=== PATIENT | female | born 1945 | race Caucasian/White ===

== ENCOUNTER 2018-01-18 15:23 | Emergency (ER) | payer BC, MEDICARE, OTHER ==
[~2018-01-18] VITALS: Ht 165.1 cm; Wt 92.0 kg
[2018-01-18] MEDS ORDERED: SODIUM CHLORIDE FLUSH 10ML SYR IVF ONE (16:00)
[2018-01-18] MEDS ORDERED: ATORVASTATIN (16:00)
[2018-01-18] MEDS ORDERED: SYNTHROID (16:00)
[2018-01-18 16:06] LABS: BASOPHILS # (AUTO) 0.13 x10^3/uL (0-0.1); BASOPHILS % (AUTO) 1 % (0-1); EOSINOPHILS # (AUTO) 0.64 x10^3/uL (0-0.4); EOSINOPHILS % (AUTO) 6 % (1-7); LYMPHOCYTES # (AUTO) 4.86 x10^3/uL (1-3.4); LYMPHOCYTES % (AUTO) 45 % (22-44); MD NO; MEAN CORPUSCULAR HEMOGLOBIN 30.6 pg (27.0-34.8); MEAN CORPUSCULAR HGB CONC 32.7 g/dL (32.4-35.8); MEAN CORPUSCULAR VOLUME 93.5 fL (80-100); MEAN PLATELET VOLUME 7.9 fL (7.4-10.4); MONOCYTES # (AUTO) 0.79 x10^3/uL (0.2-0.8); MONOCYTES % (AUTO) 7 % (2-9); NEUTROPHILS # (AUTO) 4.31 x10^3/uL (1.8-6.8); NEUTROPHILS % (AUTO) 40 % (42-75); PLATELET COUNT 474 x10^3/uL (130-400); RED BLOOD COUNT 4.74 x10^6/uL (3.82-5.3); RED CELL DISTRIBUTION WIDTH 13.5 % (9.6-15.2)
[2018-01-18 16:16] LABS: ALANINE AMINOTRANSFERASE 24 U/L (12-78); ALBUMIN 3.3 g/dL (3.4-5.0); ANION GAP 8 mmol/L (5-15); CALCIUM 9.6 mg/dL (8.5-10.1); CHLORIDE 105 mmol/L (98-107); CREATININE 0.56 mg/dL (0.55-1.02)
[2018-01-18 16:18] LABS: ALKALINE PHOSPHATASE 109 U/L (45-117); BILIRUBIN,TOTAL 0.5 mg/dL (0.2-1.0); TOTAL PROTEIN 7.5 g/dL (6.4-8.2)
[2018-01-18 16:19] LABS: MICROSCOPIC NOT IND
[2018-01-18 16:38] LABS: CULTURE INDICATED? NO
[2018-01-18 18:12] VITALS: BP 139/83
== END 2018-01-18 19:09 | disposition home or self-care (01) ==
LOC: ED 18:45
DX: R10.84 Generalized abdominal pain (principal); R11.2 Nausea with vomiting, unspecified; R63.0 Anorexia; E03.9 Hypothyroidism, unspecified; Z90.49 Acquired absence of other specified parts of digestive tract
CPT/HCPCS: 36415; 74021; 74177; 80053; 81003; 83690; 85025; 99285

== ENCOUNTER → 2018-02-03 | Outpatient (CLI) | payer MEDICARE ==
[~2018-02-03] MED LIST: ATORVASTATIN; OMNIPAQUE 350 MG/ML, 100ML BOTTLE ONE; SYNTHROID
== END | disposition home or self-care (01) ==
LOC: RAD 15:40
PROVIDERS: ATTEND Family Medicine
DX: K43.9 Ventral hernia without obstruction or gangrene (principal)
CPT/HCPCS: 74174; Q9967

== ENCOUNTER → 2018-08-11 | Outpatient (CLI) | payer MEDICARE ==
[~2018-08-11] MED LIST changes: -OMNIPAQUE 350 MG/ML, 100ML BOTTLE ONE; +REGADENOSON 0.4 MG/5 ML SYRINGE ONE
== END | disposition home or self-care (01) ==
LOC: CFH 12:38
PROVIDERS: ATTEND Internal Medicine Cardiovascular Disease
DX: R06.02 Shortness of breath (principal); R07.9 Chest pain, unspecified; I10 Essential (primary) hypertension; E78.5 Hyperlipidemia, unspecified
CPT/HCPCS: 78452; 93017; 93306; A9502; J2785

== ENCOUNTER 2018-10-31 13:29 | Emergency (ER) | payer MEDICARE ==
[~2018-10-31] VITALS: Ht 162.6 cm; Wt 95.0 kg
[~2018-10-31 13:29] MED LIST changes: -REGADENOSON 0.4 MG/5 ML SYRINGE ONE
--- NOTE | 2018-10-31 13:50 | NUR ---
THIS IS A 73 YO FEMALE WHO PRESENTS TO THE ER BIB [facility] C/O RODRIGUEZ, DIZZINESS, AND CHEST TIGHTNESS SINCE THURSDAY, WORSE OVER THE LAST 40 MINUTES AND INCLUDING NAUSEA. PT STARTING TAKING VALCYCLOVIR SINCE THURSDAY FOR SHINGLES. PT DENIES ANY RASH, JUST STATES "I'VE HAD TINGLES OVER MY WHOLE BODY, IT FELT LIKE SHINGLES". PT DESCRIBES PAIN "DULL AND PRESSURE, LIKE SOMEONE IS SITTING ON ME". PT REPORTS PAIN IS WORSE WITH PALPATION AND WEARING BRA. RELIEVED BY REST AND TAKING BRA OFF. SKIN PWD. RESP EVEN AND EQAUL. NSR ON THE PRESCHOOL ASSOCIATE TEACHER. PT ON CONT BP, CARDIAC AND 2O MONITORS. CALL LIGHT WITHIN REACH. WILL CONT TO MONITOR PT.
[2018-10-31 14:00] LABS: BASOPHILS # (AUTO) 0.17 x10^3/uL (0-0.1); BASOPHILS % (AUTO) 1 % (0-1); EOSINOPHILS # (AUTO) 0.57 x10^3/uL (0-0.4); EOSINOPHILS % (AUTO) 5 % (1-7); LYMPHOCYTES # (AUTO) 4.93 x10^3/uL (1-3.4); LYMPHOCYTES % (AUTO) 41 % (22-44); MD NO; MEAN CORPUSCULAR HEMOGLOBIN 30.8 pg (27.0-34.8); MEAN CORPUSCULAR HGB CONC 33.3 g/dL (32.4-35.8); MEAN CORPUSCULAR VOLUME 92.5 fL (80-100); MEAN PLATELET VOLUME 8.4 fL (7.4-10.4); MONOCYTES # (AUTO) 0.65 x10^3/uL (0.2-0.8); MONOCYTES % (AUTO) 5 % (2-9); NEUTROPHILS # (AUTO) 5.67 x10^3/uL (1.8-6.8); NEUTROPHILS % (AUTO) 47 % (42-75); PLATELET COUNT 450 x10^3/uL (130-400); RED CELL DISTRIBUTION WIDTH 13.6 % (9.6-15.2)
[2018-10-31 14:10] LABS: ANION GAP 7 mmol/L (5-15); CALCIUM 9.4 mg/dL (8.5-10.1); CHLORIDE 104 mmol/L (98-107); CREATININE 0.51 mg/dL (0.55-1.02)
[2018-10-31 14:14] LABS: TROPONIN I < 0.015 ng/mL (0.000-0.045)
--- NOTE | 2018-10-31 14:16 | NUR ---
PT STEADY UPON AMBULATION TO RESTROOM. URINE SAMPLE OBTAINED. PT ASSISTED BACK TO [facility]. PT ON CONT BP, CARDIAC AND O2 MONITORS. FRIENDS AT BEDSIDE. CALL LIGHT WITHIN REACH. WILL CONT TO MONITOR PT.
[2018-10-31 14:25] LABS: MICROSCOPIC AUTO
[2018-10-31 14:30] LABS: CULTURE INDICATED? YES
[2018-10-31 14:54] VITALS: BP 156/93
== END 2018-10-31 15:05 | disposition home or self-care (01) ==
LOC: ED 14:28
DX: R55 Syncope and collapse (principal); E78.5 Hyperlipidemia, unspecified; E03.9 Hypothyroidism, unspecified; Z87.891 Personal history of nicotine dependence; Z88.0 Allergy status to penicillin; Z90.49 Acquired absence of other specified parts of digestive tract
CPT/HCPCS: 36415; 71045; 80048; 81001; 84484; 85025; 87086; 93005; 99284

== ENCOUNTER → 2020-01-12 | Outpatient (CLI) | payer MEDICARE | END | disposition home or self-care (01) | LOC: CFH 12:13 | PROVIDERS: ATTEND Family Medicine | DX: K76.0 Fatty (change of) liver, not elsewhere classified (principal); K57.30 Diverticulosis of large intestine without perforation or abscess without bleeding; K42.9 Umbilical hernia without obstruction or gangrene; K43.9 Ventral hernia without obstruction or gangrene; M85.88 Other specified disorders of bone density and structure, other site; I51.7 Cardiomegaly; Z90.49 Acquired absence of other specified parts of digestive tract | CPT/HCPCS: 74176 ==

== ENCOUNTER 2020-02-20 12:43 | Emergency (ER) | payer MEDICARE ==
[~2020-02-20] VITALS: Ht 165.1 cm; Wt 94.4 kg
[2020-02-20] MEDS ORDERED: MORPHINE SULFATE 4 MG/ML, 1ML ONE (13:38)
[2020-02-20] MEDS ORDERED: ONDANSETRON 2MG/ML, 2ML ONE (13:59)
[2020-02-20 14:04] LABS: BASOPHILS # (AUTO) 0.05 x10^3/uL (0-0.1); BASOPHILS % (AUTO) 1 % (0-1); EOSINOPHILS # (AUTO) 0.52 x10^3/uL (0-0.4); EOSINOPHILS % (AUTO) 5 % (1-7); LYMPHOCYTES # (AUTO) 4.39 x10^3/uL (1-3.4); LYMPHOCYTES % (AUTO) 39 % (22-44); MD NO; MEAN CORPUSCULAR HEMOGLOBIN 30.5 pg (27.0-34.8); MEAN CORPUSCULAR HGB CONC 32.8 g/dL (32.4-35.8); MONOCYTES # (AUTO) 0.58 x10^3/uL (0.2-0.8); MONOCYTES % (AUTO) 5 % (2-9); NEUTROPHILS # (AUTO) 5.63 x10^3/uL (1.8-6.8); NEUTROPHILS % (AUTO) 50 % (42-75); PLATELET COUNT 452 x10^3/uL (130-400)
--- NOTE | 2020-02-20 14:13 | NUR ---
PT PRESENTS TO ED WITH C/O PERIUMBILICAL PAIN SECONDARY TO HERNIA WHICH HAS BEEN PREVIOUSLY DIAGNOSED. PT NOTES PAIN HAS BEEN PRESENT FOR MONTHS BUT WORSE IN LAST TWO DAYS, +NAUSEA. PT REQUESTS LOW DOSE PAIN MED AND NAUSEA MED, ERNA DE LA ROSA NOTIFIED, VERBAL ORDER RECEIVED FOR 1MG MORPHINE AND 4 MG IV ZOFRAN. BP AND SPO2 MONITORS IN PLACE. CALL LIGHT IN REACH. US AT BEDSIDE.
[2020-02-20 14:17] LABS: ALANINE AMINOTRANSFERASE 30 U/L (12-78); ALBUMIN 3.2 g/dL (3.4-5.0); ANION GAP 9 mmol/L (5-15); CALCIUM 9.3 mg/dL (8.5-10.1); CHLORIDE 107 mmol/L (98-107); CREATININE 0.54 mg/dL (0.55-1.02)
[2020-02-20 14:20] LABS: ALKALINE PHOSPHATASE 102 U/L (45-117); BILIRUBIN,TOTAL 0.7 mg/dL (0.2-1.0); TOTAL PROTEIN 7.5 g/dL (6.4-8.2)
[2020-02-20] MEDS ORDERED: morphine SULFATE 10 MG/ML, 1ML IVPush ONE (14:30)
[2020-02-20] MEDS ORDERED: ONDANSETRON 2MG/ML, 2ML IVPush ONE (14:30)
--- NOTE | 2020-02-20 15:02 | NUR ---
PT REPORTS MORPHINE DID NOT RELIEVE PAIN, DECLINES ANY ADDITIONAL MEDS. PT A&O, RESPS EVEN AND UNLABORED. ALL RESULTS BACK, CHART UP FOR RECHECK, AWAITING MD AND DISPO. REPORT GIVEN TO KARTHIK REYES AT BEDSIDE.
--- NOTE | 2020-02-20 15:09 | NUR ---
REPORT RC'VD FROM BRITTANY ANGELES AND CARE OF PT ASSUMED. PT AMBULATING AROUND ROOM, STATES IT FEELS BETTER THAN SITTING. ERP TO SEE.
--- NOTE | 2020-02-20 15:10 | NUR ---
ERP AT NOW.
--- NOTE | 2020-02-20 15:27 | NUR ---
PT REFUSING CT SCAN, STATES, "I HAD ONE A MONTH AGO, NOTHING HAS CHANGED." PT ALSO STATES SHE IS ALLERGIC TO CONTRAST. PT RELUCTANT TO TAKE NARCOTICS; ERP NOTIFIED. INFORMED PT NO OTHER MEDS WOULD BE EFFECTIVE FOR THE ABD PAIN. PT AGREEABLE TO RECEIVE IV DILAUDID. ERP CONSULTING SURGERY.
[2020-02-20] MEDS ORDERED: HYDROmorphone 2 MG/ML, 1ML ONE (15:29)
[2020-02-20] MEDS ORDERED: HYDROmorphone 1 MG/ML, 1ML INJ IV ONE (15:30)
[2020-02-20 15:45] VITALS: BP 153/80
--- NOTE | 2020-02-20 15:51 | NUR ---
PT STATES HER PAIN WAS RELIEVED AFTER 1MG DILAUDID. FRIEND AT BS, WILL TRACER BULLET CHARGING MACHINE OPERATOR HER HOME.
--- NOTE | 2020-02-20 16:12 | NUR ---
D/C INSTRUCTIONS, MEDS & F/U APPT RV'WD WITH PT, SHE VERBALIZES UNDERSTANDING. PT KNOWS TO CALL DR. HAWKINS TOMORROW. RX GIVEN X1. ASSISTED PT OUT OF ED VIA WC WITH FRIEND, WHO WILL TAKE HER HOME.
== END 2020-02-20 16:12 | disposition home or self-care (01) ==
LOC: ED 15:09
DX: K42.9 Umbilical hernia without obstruction or gangrene (principal); E03.9 Hypothyroidism, unspecified; E78.5 Hyperlipidemia, unspecified; J44.9 Chronic obstructive pulmonary disease, unspecified; Z87.891 Personal history of nicotine dependence
CPT/HCPCS: 36415; 76705; 80053; 85025; 96374; 96375; 99284; J1170; J2270; J2405

== ENCOUNTER 2020-03-03 08:40 | Emergency (ER) | payer MEDICARE ==
[~2020-03-03] VITALS: Ht 165.1 cm; Wt 93.0 kg
--- NOTE | 2020-03-03 09:20 | NUR ---
ASSUMED CARE OF PT AT THIS TIME FROM LOBBY. AMBULATORY TO ROOM WITH STEADY GAIT. TIESHA VASQUEZ AT BEDSIDE FOR EVALUATION. 75 Y/O F PRESENT STATING "GUM INFECTION FOR ABOUT A MONTH, THE TOP FRONT TEETH AREA AND NOT SURE IF THAT IS CAUSING SOME PART OF THE STOMACH PAIN. I HAVE BEEN NAUSEATED AND SEVERE PAIN AT MY HERNIA IN MY STOMACH FOR SOME TIME NOW, I'M SCHEDULED FOR SURGERY February." DENIES DIARRHEA, FEVER, CHILLS, COUGH, SOB, CP, RODRIGUEZ, RECENT TRAVEL OR CONTACT WITH COVID + PERSONS. CONT PULSE OX, BP MONITORS APPLIED. VSS. RATES ABD PAIN 03/09, REFUSES NEED FOR PAIN MEDICATION. A&OX4. CALL LIGHT IN REACH. FALL PRECAUTIONS IN PLACE.
[2020-03-03] MEDS ORDERED: ONDANSETRON 2MG/ML, 2ML IVPush ONE (09:30)
[2020-03-03] MEDS ORDERED: CIPROFLOXACIN/PMX 400MG/200ML 200 ML IV ONE (09:30)
[2020-03-03] MEDS ORDERED: SODIUM CHLORIDE FLUSH 10ML SYR IVF ONE (09:30)
[2020-03-03] MEDS ORDERED: ONDANSETRON 2MG/ML, 2ML ONE (09:34)
--- NOTE | 2020-03-03 09:40 | NUR ---
LAB AT BEDSIDE, BLOOD CULTURES TO BE [id number] PRIOR TO ANTIBIOTIC ADMIN PER ERP
--- NOTE | 2020-03-03 09:45 | NUR ---
IV PLACED, PT MEDICATED NOTED PER ORDER IN EMAR FOR NAUSEA. THERMOSTAT MACHINE TENDER AT BEDSIDE FOR EKG. VSS. CALL LIGHT IN REACH
--- NOTE | 2020-03-03 09:51 | NUR ---
PT AWARE UA SAMPLE NEEDED, DENIES URGE AT THIS TIME. UPDATED ON NPO ORDER, VERBALIZED UNDERSTANDING
--- NOTE | 2020-03-03 09:59 | NUR ---
PT REPORT FROM KARTHIK CARLTON. PT CARE TO BE ASSUMED.
--- NOTE | 2020-03-03 10:00 | NUR ---
VO FROM DR SENA: HOLD ANTIBIOTIC
[2020-03-03 10:02] LABS: BASOPHILS # (AUTO) 0.05 x10^3/uL (0-0.1); BASOPHILS % (AUTO) 1 % (0-1); EOSINOPHILS # (AUTO) 0.57 x10^3/uL (0-0.4); EOSINOPHILS % (AUTO) 6 % (1-7); LYMPHOCYTES # (AUTO) 2.62 x10^3/uL (1-3.4); LYMPHOCYTES % (AUTO) 28 % (22-44); MD NO; MEAN CORPUSCULAR HEMOGLOBIN 30.5 pg (27.0-34.8); MEAN CORPUSCULAR HGB CONC 32.1 g/dL (32.4-35.8); MONOCYTES % (AUTO) 3 % (2-9); NEUTROPHILS % (AUTO) 63 % (42-75); PLATELET COUNT 496 x10^3/uL (130-400); RED CELL DISTRIBUTION WIDTH 14.4 % (9.6-15.2)
--- NOTE | 2020-03-03 10:03 | NUR ---
BEDSIDE REPORT AND TRANSFER OF CARE TO ALANNA ANGELES AT THIS TIME.
[2020-03-03 10:10] LABS: INTERNATIONAL NORMALIZED RATIO 0.98 (0.93-1.1); PROTHROMBIN TIME 10.4 Seconds (9.6-11.5)
[2020-03-03 10:16] LABS: ALANINE AMINOTRANSFERASE 28 U/L (12-78); ALBUMIN 3.4 g/dL (3.4-5.0); ANION GAP 5 mmol/L (5-15); CALCIUM 9.8 mg/dL (8.5-10.1); CHLORIDE 108 mmol/L (98-107); CREATININE 0.62 mg/dL (0.55-1.02)
[2020-03-03 10:18] LABS: ALKALINE PHOSPHATASE 96 U/L (45-117); BILIRUBIN,TOTAL 0.6 mg/dL (0.2-1.0); TOTAL PROTEIN 7.6 g/dL (6.4-8.2)
--- NOTE | 2020-03-03 10:50 | NUR ---
PT IN BR. HUMAN SERVICES PROFESSIONAL IN ROOM AWAITING PT
--- NOTE | 2020-03-03 10:58 | NUR ---
VOIDED SPECIMEN PROVIDED. PT TO CT PER MEGAN. FRIEND IN ED ROOM STATES PT'S FAMILY LIVES IN [place]; PT FREQUENTLY FORGETTING THINGS; MULTIPLE TRIPS TO ED FOR PAIN THAT USUALLY GOES AWAY IN THE AFTERNOON; PT HAS NOT STARTED ANTIBIOTIC FOR GUM INFECTION.
[2020-03-03 11:21] VITALS: BP 146/80
[2020-03-03 11:22] LABS: MICROSCOPIC NOT IND
--- NOTE | 2020-03-03 11:22 | NUR ---
PT REPORTS DECREASE IN ABD PAIN.
[2020-03-03] MEDS ORDERED: LIPITOR (11:23)
== END 2020-03-03 11:43 | disposition home or self-care (01) ==
LOC: ED 11:30
DX: K42.9 Umbilical hernia without obstruction or gangrene (principal); R94.31 Abnormal electrocardiogram [ECG] [EKG]; E78.5 Hyperlipidemia, unspecified; J44.9 Chronic obstructive pulmonary disease, unspecified; E03.9 Hypothyroidism, unspecified; Z87.891 Personal history of nicotine dependence; Z90.49 Acquired absence of other specified parts of digestive tract; Z90.81 Acquired absence of spleen
CPT/HCPCS: 36415; 74176; 80053; 81003; 83605; 83690; 85025; 85610; 87040; 93005; 96374; 99285; J2405

== ENCOUNTER → 2020-03-06 | Outpatient (CLI) | payer MEDICARE ==
[~2020-03-06] MED LIST changes: +ATOR20TA37 PO; +FLUT1BLS INH; +LEVO88TA2 PO; +LIPITOR
== END | disposition home or self-care (01) ==
LOC: STAR 13:02
PROVIDERS: ATTEND Surgery
DX: Z01.818 Encounter for other preprocedural examination (principal); K43.9 Ventral hernia without obstruction or gangrene; I25.2 Old myocardial infarction
CPT/HCPCS: 93005

== ENCOUNTER 2020-03-09 08:00 | Outpatient (CLI) | payer MEDICARE ==
[~2020-03-09] VITALS: Ht 165.1 cm; Wt 93.2 kg
== END 2020-03-09 23:59 | disposition home or self-care (01) ==
LOC: STAR 08:00 → EDSTATUS 03-14 12:15
PROVIDERS: ATTEND Surgery
DX: Z01.818 Encounter for other preprocedural examination (principal); Z11.59 Encounter for screening for other viral diseases; K43.9 Ventral hernia without obstruction or gangrene; Z88.0 Allergy status to penicillin; Z88.2 Allergy status to sulfonamides; Z88.1 Allergy status to other antibiotic agents; Z91.041 Radiographic dye allergy status; Z87.891 Personal history of nicotine dependence; Z82.49 Family history of ischemic heart disease and other diseases of the circulatory system
CPT/HCPCS: 36415; 87635

== ENCOUNTER → 2020-04-10 | Outpatient (CLI) | payer MEDICARE | END | disposition home or self-care (01) | LOC: STAR 14:21 | PROVIDERS: ATTEND Surgery | DX: Z01.818 Encounter for other preprocedural examination (principal); K43.9 Ventral hernia without obstruction or gangrene | CPT/HCPCS: 93005 ==

== ENCOUNTER → 2020-04-13 | Outpatient (CLI) | payer MEDICARE | END | disposition home or self-care (01) | LOC: STAR 10:34 | PROVIDERS: ATTEND Anesthesiology | DX: Z01.818 Encounter for other preprocedural examination (principal); Z11.59 Encounter for screening for other viral diseases | CPT/HCPCS: 36415; 87635 ==

== ENCOUNTER 2020-04-18 08:20 | Observation (INO) | payer MEDICARE ==
[~2020-04-18] VITALS: Ht 165.1 cm; Wt 95.9 kg
[~2020-04-18 08:20] MED LIST changes: +BUPIVACAINE/EPI 0.5% 1:200K ONE
[2020-04-18] MEDS ORDERED: LACTATED RINGERS 1,000 ML IV SCH ×2 (09:12→19:00)
[2020-04-18] MEDS ORDERED: LIDOCAINE-MPF 1%, 2ML INFIL ONE (09:30)
[2020-04-18] MEDS ORDERED: CHLORHEXIDINE 15 ML UDC MM ONE (09:30)
[2020-04-18] MEDS ORDERED: FENTANYL PF 250 MCG/5ML ONE (10:33)
[2020-04-18] MEDS ORDERED: PROMETHAZINE 25 MG SUPP PR PRN (11:00)
[2020-04-18] MEDS ORDERED: PROMETHAZINE 25 MG/ML, 1ML IVPush PRN (11:00)
[2020-04-18] MEDS ORDERED: ACETAMINOPHEN 325 MG TABLET PO PRN (11:00)
[2020-04-18] MEDS ORDERED: hydrALAzine 20 MG/ML, 1ML IV PRN (11:00)
[2020-04-18] MEDS ORDERED: ONDANSETRON 2MG/ML, 2ML IVPush PRN ×3 (11:00→19:00)
[2020-04-18] MEDS ORDERED: HYDROmorphone 1 MG/ML, 1ML INJ IVPush PRN (11:00)
[2020-04-18] MEDS ORDERED: SUGAMMADEX 200 MG/2 ML IVPush ONE (12:10)
[2020-04-18] MEDS ORDERED: ROCURONIUM 10MG/ML,5ML ONE (12:10)
[2020-04-18] MEDS ORDERED: ONDANSETRON 2MG/ML, 2ML ONE (12:10)
[2020-04-18] MEDS ORDERED: SUCCINYLCHOLINE 20 MG/ML, 10ML ONE (12:10)
[2020-04-18] MEDS ORDERED: DEXAMETHASONE 4 MG/ML, 1ML ONE (12:10)
[2020-04-18] MEDS ORDERED: NEOSTIGMINE 1 MG/ML, 10ML ONE (12:10)
[2020-04-18] MEDS ORDERED: PROPOFOL 10 MG/ML, 20ML ONE (12:10)
[2020-04-18] MEDS ORDERED: CEFAZOLIN 1,000 MG ONE (12:10)
[2020-04-18] MEDS ORDERED: GLYCOPYRROLATE 0.2MG/1ML, 5ML ONE (12:10)
[2020-04-18] MEDS ORDERED: hydrALAzine 20 MG/ML, 1ML ONE (12:29)
[2020-04-18] MEDS ORDERED: LABETALOL 5MG/ML, 20ML ONE (12:29)
[2020-04-18] MEDS ORDERED: FENTANYL PF 100 MCG/2ML ONE (12:30)
[2020-04-18] MEDS: LABETALOL 5MG/ML, 20ML IV PRN ×2 (12:35→12:41)
[2020-04-18] MEDS ORDERED: OXYcodone 5 MG/5 ML ORAL.SOL UDC ONE (12:50)
[2020-04-18] MEDS ORDERED: ACETAMINOPHEN 650 MG/20.3 ML UDC ONE ×2 (12:50→12:54)
[2020-04-18] MEDS: FENTANYL PF 100 MCG/2ML IV PRN ×4 (12:53→13:31)
[2020-04-18] MEDS: OXYcodone 5 MG/5 ML ORAL.SOL UDC PO PRN ×2 (12:57→14:06)
[2020-04-18] MEDS ORDERED: KETOROLAC 30 MG/1 ML IVPush ONE (14:00)
[2020-04-18] MEDS ORDERED: morphine SULFATE 10 MG/ML, 1ML IVPush PRN (16:30)
[2020-04-18] MEDS ORDERED: OXYcodone IR 5MG TABLET PO PRN (17:00)
[2020-04-18] MEDS ORDERED: MORPHINE SULFATE 4 MG/ML, 1ML IVPush PRN (19:00)
[2020-04-18 19:48] VITALS: BP 156/92
[2020-04-18] MEDS ORDERED: PROMETHAZINE 25 MG SUPP PR ONE (20:10)
[2020-04-18] MEDS: OXYcodone/APAP 5/325MG TABLET PO PRN (22:01)
[2020-04-19 00:10] VITALS: BP 120/73
[2020-04-19 03:19] VITALS: BP 133/90
[2020-04-19] MEDS: OXYcodone/APAP 5/325MG TABLET PO PRN (05:24)
[2020-04-19 07:37] VITALS: BP 94/55
[2020-04-19] MEDS ORDERED: OXYC-302 PO (11:30)
== END 2020-04-19 12:00 | disposition home or self-care (01) ==
LOC: OUT 08:20 → 4NE 18:31 → OUT 18:39 → DCLOUNGE 04-19 11:57
PROVIDERS: ADMIT Surgery; ATTEND Surgery
DX: K43.2 Incisional hernia without obstruction or gangrene (principal); E03.9 Hypothyroidism, unspecified; Z87.891 Personal history of nicotine dependence; Z79.899 Other long term (current) drug therapy; Z90.81 Acquired absence of spleen
CPT/HCPCS: 49655; 96361; 96374; C1781; G0378; J0330; J0360; J0690; J1100; J1885; J2405; J2704; J2710; J3010; J7120

== ENCOUNTER 2020-04-19 16:11 | Emergency (ER) | payer MEDICARE ==
[~2020-04-19] VITALS: Ht 165.1 cm; Wt 92.0 kg
[~2020-04-19 16:11] MED LIST changes: -BUPIVACAINE/EPI 0.5% 1:200K ONE; +OXYC-302 PO
[2020-04-19 16:18] VITALS: BP 141/100
--- NOTE | 2020-04-19 16:51 | NUR ---
PT WAITING IN LOBBY WHEN SHE BEGAN C/O "NEEDING OXYGEN, I'M HAVING TROUBLE BREATHING, MY CHEST HURTS AND I'M HAVING PAIN IN MY JAW", PT TAKEN TO ROOM VIA WC FOR EKG.
[2020-04-19] MEDS ORDERED: MORPHINE SULFATE 4 MG/ML, 1ML IVPush PRN (18:00)
[2020-04-19] MEDS ORDERED: ONDANSETRON 2MG/ML, 2ML IVPush ONE (18:00)
[2020-04-19 18:15] LABS: BASOPHILS # (AUTO) 0.24 x10^3/uL (0-0.1); BASOPHILS % (AUTO) 2 % (0-1); EOSINOPHILS # (AUTO) 0.16 x10^3/uL (0-0.4); EOSINOPHILS % (AUTO) 1 % (1-7); LYMPHOCYTES # (AUTO) 4.59 x10^3/uL (1-3.4); LYMPHOCYTES % (AUTO) 30 % (22-44); MD NO; MEAN CORPUSCULAR HEMOGLOBIN 30.7 pg (27.0-34.8); MEAN CORPUSCULAR HGB CONC 32.6 g/dL (32.4-35.8); MEAN PLATELET VOLUME 8.2 fL (7.4-10.4); MONOCYTES # (AUTO) 0.73 x10^3/uL (0.2-0.8); MONOCYTES % (AUTO) 5 % (2-9); NEUTROPHILS # (AUTO) 9.49 x10^3/uL (1.8-6.8); NEUTROPHILS % (AUTO) 62 % (42-75); PLATELET COUNT 454 x10^3/uL (130-400); RED BLOOD COUNT 4.36 x10^6/uL (3.82-5.3)
[2020-04-19] MEDS ORDERED: ONDANSETRON ODT 4 MG ONE (18:16)
[2020-04-19] MEDS ORDERED: OXYcodone/APAP 5/325MG TABLET ONE (18:16)
[2020-04-19 18:29] LABS: ALANINE AMINOTRANSFERASE 31 U/L (12-78); ALBUMIN 3.3 g/dL (3.4-5.0); ANION GAP 8 mmol/L (5-15); CALCIUM 8.7 mg/dL (8.5-10.1); CHLORIDE 102 mmol/L (98-107); CREATININE 0.72 mg/dL (0.55-1.02)
[2020-04-19 18:32] LABS: ALKALINE PHOSPHATASE 95 U/L (45-117); BILIRUBIN,TOTAL 0.8 mg/dL (0.2-1.0); TOTAL PROTEIN 7.4 g/dL (6.4-8.2)
--- NOTE | 2020-04-19 18:39 | NUR ---
IN TO START IV, PT REFUSING ASKING FOR PERCOCET INSTEAD OF MORPHINE ORDERED. ERP NOTIFIED, AND PT IN CT ON RETURN WITH MEDS. SPOKE WITH PT'S FRIEND, WHO STATES PT CAN'T REMEMBER MOST THINGS, EXPERIENCING DIFFICULTY TAKING CARE OF SELF, AND CANCELS A LOT OF MEDICAL APPOINTMENTS INCLUDING "BRAIN SCANS" ORDERED BY ESTEFANIA. PT RETURN FROM CT, PER TECH PT STATES SHE CAN'T DO CT SCAN. PT IN TEARS, ANXIOUS, AND ASKS "WHY DO I HAVE TO DO IT?". PERCOCET AND ZOFRAN OFFERED TO PT AND PT ASKS "WHY DO I NEED TO TAKE IT", "I JUST CAN'T DO ANYTHING WHEN I'M IN THIS PAIN". THIS RN OFFERED CONTINUED REINFORCEMENT OF POC AND EMPHASIS ON PT'S REASON FOR COMING TO ED. PT FINALLY DOES TAKE MEDICATION AFTER ENCOURAGEMENT TO HELP HER PAIN. ERP NOTIFIED OF THIS AND REFUSAL TO DO CT. FRIEND AT , CALL LIGHT WITHIN REACH.
--- NOTE | 2020-04-19 18:49 | NUR ---
PT AMBULATED TO BR WITH STEADY GAIT.
--- NOTE | 2020-04-19 18:53 | NUR ---
PT NOW ASKING TO LEAVE. STATES PAIN LEVEL TOLERABLE TO GO HOME. PT PLACED UP FOR RECHECK.
== END 2020-04-19 19:55 | disposition home or self-care (01) ==
LOC: ED 19:13
DX: G89.18 Other acute postprocedural pain (principal); R10.9 Unspecified abdominal pain; R10.32 Left lower quadrant pain; J44.9 Chronic obstructive pulmonary disease, unspecified; E03.9 Hypothyroidism, unspecified; E78.5 Hyperlipidemia, unspecified; I21.9 Acute myocardial infarction, unspecified; Z90.49 Acquired absence of other specified parts of digestive tract
CPT/HCPCS: 36415; 80053; 83690; 85025; 93005; 99284

== ENCOUNTER 2020-04-20 01:13 | Emergency (ER) | payer MEDICARE ==
[~2020-04-20] VITALS: Ht 165.1 cm; Wt 94.4 kg
--- NOTE | 2020-04-20 01:29 | NUR ---
EARLIER VISIT REVEALS THAT PT WAS UNABLE/REFUSED TO DO CT, AWARE THAT SHE NEEDS TO HAVE THIS DONE NOW IF ORDERED AND PT IS AGREEABLE. PREVIOUS VISIT NURSES NOTE REVEAL NEIGHBOR EXPRESSED SOME CONCERN PT IS CANCELLING APPOINTMENTS AND BECOMING FORGETFUL.
--- NOTE | 2020-04-20 01:48 | NUR ---
PT REPORTS CONTINUED ABDOMINAL PAIN. WAS SEEN IN ED EARLIER TODAY FOR SAME. REPORTS SHE DID NOT RECEIVED PAIN MEDICATIONS, THEN RECALLED SHE HAD A PRESCRIPTION, BUT IS UNSURE OF WHAT HAPPENED TO IT. PT REQUESTING PERCOCET, REFUSING MORPHINE. PT REPORTS FRIEND BROUGHT PT TO ED. ERP IN ROOM TO EVAL PT. MONITORING APPLIED, CALL LIGHT WITHIN REACH, ALL MONITORING IN PLACE.
[2020-04-20] MEDS ORDERED: OXYcodone/APAP 5/325MG TABLET ONE (01:54)
[2020-04-20] MEDS ORDERED: OXYcodone/APAP 5/325MG TABLET PO ONE (02:00)
--- NOTE | 2020-04-20 02:00 | NUR ---
ATTEMPTED TO MEDICATE PT. PT TRIED TO SWALLOW PILL WITH WATER, SPIT PILL OUT AND STATES "MY MOUTH IS TOO DRY I DON'T WANT IT".
--- NOTE | 2020-04-20 03:24 | NUR ---
PT PLACED ON 3.5L NC WHILE SLEEPING, PT REPORTS 3L NC HOME USE AT NIGHT. MONITORING IN PLACE.
[2020-04-20 04:21] VITALS: BP 158/90
--- NOTE | 2020-04-20 04:21 | NUR ---
PT AWAKE AND REQUESTING TO LEAVE. PT UNABLE TO HAVE FRIEND COME PICK HER UP. STATES "ILL GET A TAXI CAB". ERP NOTIFIED.
== END 2020-04-20 04:42 | disposition home or self-care (01) ==
LOC: ED 02:06
DX: K91.89 Other postprocedural complications and disorders of digestive system (principal); R10.84 Generalized abdominal pain; J44.9 Chronic obstructive pulmonary disease, unspecified; E78.5 Hyperlipidemia, unspecified; E03.9 Hypothyroidism, unspecified
CPT/HCPCS: 74176; 99284

== ENCOUNTER 2020-10-03 12:38 | Emergency (ER) | payer MEDICARE ==
[~2020-10-03] VITALS: Ht 167.6 cm; Wt 89.3 kg
[~2020-10-03 12:38] MED LIST changes: -OXYC-302 PO; +OXYC1TAB14 PO
--- NOTE | 2020-10-03 13:24 | NUR ---
pt is a 75f complaining of cp and sob x 3-4 months. Symptoms worsening today. She was seen at urgent care earlier and had a cxr. provider at bedside for plan of care. labs drawn. patient in no acute distress, talking in full sentences to daughter on cell phone. call light within reach. shelter monitor, spo2, and cycling vitals in place.
[2020-10-03 13:49] LABS: BASOPHILS % (AUTO) 1 % (0-1); EOSINOPHILS % (AUTO) 4 % (1-7); LYMPHOCYTES % (AUTO) 32 % (22-44); MEAN CORPUSCULAR HEMOGLOBIN 30.9 pg (27.0-34.8); MEAN CORPUSCULAR HGB CONC 33.6 g/dL (32.4-35.8); MEAN PLATELET VOLUME 8.1 fL (7.4-10.4); MONOCYTES % (AUTO) 6 % (2-9); NEUTROPHILS % (AUTO) 58 % (42-75); PLATELET COUNT 512 x10^3/uL (130-400); RED BLOOD COUNT 4.55 x10^6/uL (3.82-5.3); RED CELL DISTRIBUTION WIDTH 13.5 % (9.6-15.2)
[2020-10-03 13:52] LABS: MD NO
[2020-10-03 13:53] LABS: ALANINE AMINOTRANSFERASE 25 U/L (12-78); ALBUMIN 3.6 g/dL (3.4-5.0); ANION GAP 5 mmol/L (5-15); CALCIUM 9.6 mg/dL (8.5-10.1); CHLORIDE 107 mmol/L (98-107); CREATININE 0.61 mg/dL (0.55-1.02)
[2020-10-03 14:03] LABS: ALKALINE PHOSPHATASE 142 U/L (45-117); BILIRUBIN,TOTAL 0.4 mg/dL (0.2-1.0); TOTAL PROTEIN 8.2 g/dL (6.4-8.2); TROPONIN I < 0.015 ng/mL (0.000-0.045)
[2020-10-03 14:04] VITALS: BP 160/91
== END 2020-10-03 15:39 | disposition home or self-care (01) ==
LOC: ED 14:18
DX: R07.89 Other chest pain (principal); R06.00 Dyspnea, unspecified; R05 Cough; I10 Essential (primary) hypertension; R00.0 Tachycardia, unspecified; E03.9 Hypothyroidism, unspecified; M79.89 Other specified soft tissue disorders; Z87.891 Personal history of nicotine dependence
CPT/HCPCS: 36415; 80053; 83880; 84443; 84484; 85025; 93005; 99284